=== PATIENT | female | born 1990 | race Two or more races ===

== ENCOUNTER 2019-08-28 06:47 | Emergency (ER) | payer OTHER ==
[~2019-08-28] VITALS: Ht 167.6 cm; Wt 116.6 kg
[~2019-08-28 06:47] MED LIST: SYNTHROID50 MCG
[2019-08-28] MEDS ORDERED: ESTARYLLA1 EACH PO (06:53)
== END 2019-08-28 11:24 | disposition home or self-care (01) ==
LOC: ER 06:47
DX: B34.9 Viral infection, unspecified (principal)

== ENCOUNTER → 2019-08-29 | Emergency (ER) | payer OTHER ==
[~2019-08-29] VITALS: Ht 167.6 cm; Wt 116.6 kg
[~2019-08-29] MED LIST changes: +ESTARYLLA1 EACH PO
== END | disposition home or self-care (01) ==
LOC: ER 17:19
DX: J11.1 Influenza due to unidentified influenza virus with other respiratory manifestations (principal)

== ENCOUNTER 2022-03-22 20:26 | Emergency (ER) | payer OTHER ==
[~2022-03-22] VITALS: Ht 167.6 cm; Wt 127.0 kg
[2022-03-22] MEDS ORDERED: DICLOFENAC SODI75 MG PO (22:55)
== END 2022-03-22 23:07 | disposition home or self-care (01) ==
LOC: ER 20:26
DX: N83.202 Unspecified ovarian cyst, left side (principal); R10.2 Pelvic and perineal pain

== ENCOUNTER 2022-09-20 19:14 | Emergency (ER) | payer OTHER ==
[~2022-09-20] VITALS: Ht 167.6 cm; Wt 136.1 kg
[~2022-09-20 19:14] MED LIST changes: +DICLOFENAC SODI75 MG PO
== END 2022-09-20 21:51 | disposition home or self-care (01) ==
LOC: ER 19:14
DX: M94.0 Chondrocostal junction syndrome [Tietze] (principal)

== ENCOUNTER 2022-09-24 09:13 | Emergency (ER) | payer OTHER ==
[~2022-09-24] VITALS: Ht 167.6 cm; Wt 136.1 kg
[2022-09-24] MEDS ORDERED: CRYSELLE-28 TA1 EACH PO (09:30)
[2022-09-24] MEDS ORDERED: KETO10TA2 PO (09:31)
== END 2022-09-24 13:23 | disposition home or self-care (01) ==
LOC: ER 09:13
DX: R10.13 Epigastric pain (principal)

== ENCOUNTER 2023-09-20 08:47 | Emergency (ER) | payer OTHER ==
[~2023-09-20] VITALS: Ht 167.6 cm; Wt 135.2 kg
[~2023-09-20 08:47] MED LIST changes: +CRYSELLE-28 TA1 EACH PO; +KETO10TA2 PO
[2023-09-20] MEDS ORDERED: SYNTHROID75 MCG PO (09:23)
[2023-09-20] MEDS ORDERED: PROZAC10 MG PO (09:24)
[2023-09-20 10:10] LABS: HEMATOCRIT 39.3 % (36.0-45.00); HEMOGLOBIN 12.7 g/dL (12.0-15.00); MEAN CELL VOLUME 76.3 fL (80.00-100.00); MEAN CORPUSCULAR HEMOGLOBIN 24.7 pg (27.00-32.0); MEAN CORPUSCULAR HGB CONC 32.3 g/dl (32.0-36.0); PLATELET COUNT 240 K/uL (150-450); RED BLOOD COUNT 5.16 M/uL (4.00-6.00); RED CELL DISTRIBUTION WIDTH 16.8 % (11.5-14.5)
[2023-09-20 10:23] LABS: PH,URINE 5.5 (5.0-8.0); URINE APPEARANCE Clear; URINE BILIRRUBIN Negative (NEGATIVE); URINE BLOOD Negative; URINE COLOR Yellow; URINE GLUCOSE Negative (NEGATIVE); URINE LEUKOCYTE Negative; URINE NITRATE Negative; URINE PROTEIN Negative (NEGATIVE); URINE UROBILINOGEN 0.2 E.U./dl
[2023-09-20 10:27] LABS: URINE BACTERIA 287.1 uL (0.0-1933); URINE EPITHELIAL CELLS 7.8 uL (0.0-38.8); URINE RBC 5.8 uL (0.0-20.8); URINE WBC 12.1 uL (0.0-23.2)
[2023-09-20 10:31] LABS: CALCIUM 8.7 mg/dL (8.5-10.1); CREATININE SERUM 0.8 mg/dL (0.55-1.02); GFR 82.11; POTASSIUM 4.14 mEq/L (3.5-5.1)
== END 2023-09-20 15:52 | disposition home or self-care (01) ==
LOC: ER 08:47
PROVIDERS: General Practice
DX: N83.292 Other ovarian cyst, left side (principal); R10.31 Right lower quadrant pain; I10 Essential (primary) hypertension; E03.9 Hypothyroidism, unspecified

== ENCOUNTER 2024-09-26 09:56 | Emergency (ER) | payer OTHER ==
[~2024-09-26] VITALS: Ht 167.6 cm; Wt 135.2 kg
[~2024-09-26 09:56] MED LIST changes: +PROZAC10 MG PO; +SYNTHROID75 MCG PO
[2024-09-26] MEDS ORDERED: FAMOTIDINE/PF 20 MG in 0.9 % SODIUM CHLORIDE 8 ML IV PUSH STA (11:05)
[2024-09-26] MEDS ORDERED: FAMOTIDINE/PF 20 MG/2 ML VIAL ONE (11:10)
[2024-09-26 11:36] LABS: HEMATOCRIT 38.1 % (36.0-45.00); HEMOGLOBIN 12.1 g/dL (12.0-15.00); MEAN CELL VOLUME 75.1 fL (80.00-100.00); MEAN CORPUSCULAR HEMOGLOBIN 23.8 pg (27.00-32.0); MEAN CORPUSCULAR HGB CONC 31.7 g/dl (32.0-36.0); PLATELET COUNT 308 K/uL (150-450); RED BLOOD COUNT 5.07 M/uL (4.00-6.00); RED CELL DISTRIBUTION WIDTH 15.6 % (11.5-14.5)
[2024-09-26 12:25] LABS: ALBUMIN 3.3 gm/dL (3.4-5.0); BILIRUBIN TOTAL 0.29 mg/dL (0.3-1.2); CALCIUM 8.8 mg/dL (8.5-10.1); CREATININE SERUM 0.77 mg/dL (0.55-1.02); GFR 85.31; GLOBULINA 4.2 G/DL (2.4-3.5); TOTAL PROTEIN 7.5 gm/dL (6.4-8.2)
== END 2024-09-26 14:04 | disposition home or self-care (01) ==
LOC: ER 09:59
PROVIDERS: General Practice
DX: R19.7 Diarrhea, unspecified (principal); Z91.018 Allergy to other foods